=== PATIENT | male | born 1980 | race Caucasian/White ===

== ENCOUNTER 2021-09-13 22:48 | Emergency (ER) | payer OTHER ==
[2021-09-13 23:27] LABS: BASOPHIL 0.2 % (0-2); EOSINOPHIL 1.1 % (0-5); HCT 44.5 % (42.0-52.0); HGB 15.4 g/dl (13.2-18.0); LYMPHOCYTE 14.6 % (15-48); MCH 30.6 pg (25.0-31.0); MCHC 34.6 g/dL (32.0-36.0); MCV 88.5 fL (78.0-100.0); MONOCYTE 10.5 % (0-12); MPV 12.1 fL (6.0-9.5); NEUTROPHIL 73.1 % (41-80); NRBC 0; PLT 237 K/uL (150-400); RBC 5.03 M/uL (4.70-6.00); RDW 12.5 % (11.5-14.0); WBC 12.7 K/uL (4.0-10.5)
[2021-09-13 23:45] LABS: ALBUMIN 4.3 g/dL (3.4-5.0); BILIRUBIN - TOTAL 0.6 mg/dL (0.2-1.0); BUN/CREAT RATIO (CALC) 17.4 RATIO; CREATININE 0.92 mg/dL (0.67-1.17); GLOBULIN (CALCULATION) 2.9 g/dL; POTASSIUM 3.9 mmol/L (3.5-5.1); TOTAL PROTEIN 7.2 g/dL (6.4-8.2)
[2021-09-14] MEDS ORDERED: NORCO 5-325 TA1 EACH PO (00:39)
[2021-09-14] MEDS ORDERED: VIBRAMYCIN100 MG PO (00:39)
== END 2021-09-14 00:56 | disposition home or self-care (01) ==
LOC: FER 22:48
PROVIDERS: Internal Medicine
DX: S01.01XA Laceration without foreign body of scalp, initial encounter (principal); S20.411A Abrasion of right back wall of thorax, initial encounter; F17.210 Nicotine dependence, cigarettes, uncomplicated; Z23 Encounter for immunization; V80.010A Animal-rider injured by fall from or being thrown from horse in noncollision accident, initial encounter; Y92.009 Unspecified place in unspecified non-institutional (private) residence as the place of occurrence of the external cause
CPT/HCPCS: 36415; 70450; 72125; 72128; 72131; 80053; 85025; 90471; 90715